=== PATIENT | female | born 1965 | race Caucasian/White ===

== ENCOUNTER 2017-07-29 14:22 | Emergency (ER) | payer MEDICAID ==
[~2017-07-29] VITALS: Ht 160 cm; Wt 54.5 kg
[~2017-07-29 14:22] MED LIST: BACTRIM DS1 TAB PO; COL100 PO; GLU5 PO; GLUCOTROL10 MG PO; LAC PO; MECLIZINE HCL12.5 MG PO; METFORMIN HCL850 MG PO; THERA TABS1 TAB PO; TRAMADOL HCL50 MG PO; ZOVIRAX400 MG PO
[2017-07-29 17:19] LABS: BASOPHIL % 0.7 % (0-2); PLATELET COUNT 186 x10^3mcL (130-400); RED CELL DISTRIBUTION WIDTH 13.2 % (11.5-14.5)
[2017-07-29 17:29] LABS: CARBON DIOXIDE 29.7 mmol/L (21-32); CHLORIDE SERUM 99 mmol/L (98-107); CREATININE SERUM 0.6 mg/dL (0.6-1.0); GFR1 > 60 mL/min; GLUCOSE SERUM 195 mg/dL (74-106); POTASSIUM SERUM 4.4 mmol/L (3.5-5.1); SODIUM SERUM 136 mmol/L (136-145)
[2017-07-29 17:35] LABS: ALBUMIN 3.6 g/dL (3.4-5.0); ALKALINE PHOSPHATASE 98 U/L (46-116); ALT/SGPT 22 U/L (14-59); AST/SGOT 26 U/L (15-37); BILIRUBIN TOTAL 0.8 mg/dL (0.20-1.00)
[2017-07-29 17:36] LABS: TOTAL PROTEIN, SERUM 8.4 g/dL (6.4-8.2)
[2017-07-29 17:39] LABS: UA SPECIFIC GRAVITY >=1.030 (1.005-1.035); microscopic required? YES; urine erythrocyte TRACE (NEGATIVE)
[2017-07-29 19:51] VITALS: BP 121/78
== END 2017-07-29 19:45 | disposition home or self-care (01) ==
LOC: ED 14:22
PROVIDERS: Emergency Medicine
DX: G89.29 Other chronic pain (principal); M54.9 Dorsalgia, unspecified; E11.9 Type 2 diabetes mellitus without complications; E78.00 Pure hypercholesterolemia, unspecified; Z79.84 Long term (current) use of oral hypoglycemic drugs
CPT/HCPCS: J3010; J7030

== ENCOUNTER 2020-01-26 12:09 | Observation (INO) | payer OTHER ==
[~2020-01-26] VITALS: Ht 160 cm; Wt 54.6 kg
[2020-01-26 12:48] LABS: PLATELET COUNT 233 x10^3mcL (130-400); RED CELL DISTRIBUTION WIDTH 13.4 % (11.5-14.5)
[2020-01-26 13:17] LABS: CALCIUM 9.5 mg/dL (8.5-10.1); CHLORIDE SERUM 101 mmol/L (98-107); CREATININE SERUM 0.7 mg/dL (0.6-1.0); GFR1 > 60 mL/min; GLUCOSE SERUM 356 mg/dL (74-106); POTASSIUM SERUM 4.6 mmol/L (3.5-5.1); SODIUM SERUM 136 mmol/L (136-145)
[2020-01-26 13:19] LABS: ALKALINE PHOSPHATASE 101 U/L (46-116); ALT/SGPT 25 U/L (14-59); AST/SGOT 10 U/L (15-37); BILIRUBIN TOTAL 0.7 mg/dL (0.20-1.00); TOTAL PROTEIN, SERUM 7.4 g/dL (6.4-8.2)
[2020-01-26] MEDS ORDERED: GLIPIZIDE XL10 M1 PO (13:50)
[2020-01-26 16:16] VITALS: BP 115/61
[2020-01-26 20:16] VITALS: BP 109/56
[2020-01-27 04:50] VITALS: BP 103/55
[2020-01-27 06:58] LABS: BASOPHIL % 0.9 % (0-2); PLATELET COUNT 223 x10^3mcL (130-400); RED CELL DISTRIBUTION WIDTH 13.6 % (11.5-14.5)
[2020-01-27 08:30] LABS: CALCIUM 9.7 mg/dL (8.5-10.1); CARBON DIOXIDE 25.5 mmol/L (21-32); CHLORIDE SERUM 105 mmol/L (98-107); CREATININE SERUM 0.6 mg/dL (0.6-1.0); GFR1 > 60 mL/min; GLUCOSE SERUM 173 mg/dL (74-106); SODIUM SERUM 137 mmol/L (136-145)
[2020-01-27 08:32] VITALS: BP 104/54
[2020-01-27 09:23] VITALS: Ht 160 cm; Wt 54.6 kg
[2020-01-27] MEDS ORDERED: BACDS PO (12:43)
[2020-01-27 13:32] VITALS: BP 104/54
[2020-01-27 14:00] VITALS: BP 108/61
== END 2020-01-27 15:10 | disposition home or self-care (01) ==
LOC: ED 12:09 → DU 14:56
PROVIDERS: Emergency Medicine; ADMIT Hospitalist
DX: R07.2 Precordial pain (principal); I10 Essential (primary) hypertension; E11.9 Type 2 diabetes mellitus without complications; R55 Syncope and collapse; M54.5 Low back pain; G89.29 Other chronic pain; E78.5 Hyperlipidemia, unspecified
CPT/HCPCS: 82962; G0378; G0480; J1644; J2060; Q0092

== ENCOUNTER 2020-02-19 12:11 | Emergency (ER) | payer OTHER ==
[~2020-02-19] VITALS: Ht 160 cm; Wt 49.9 kg
[~2020-02-19 12:11] MED LIST changes: +BACDS PO; +GLIPIZIDE XL10 M1 PO
[2020-02-19 12:16] VITALS: Ht 160 cm; Wt 49.9 kg
[2020-02-19 13:23] LABS: BASOPHIL % 0.8 % (0-2); PLATELET COUNT 238 x10^3mcL (130-400); RED CELL DISTRIBUTION WIDTH 13.5 % (11.5-14.5)
[2020-02-19 13:30] LABS: ALBUMIN 4.1 g/dL (3.4-5.0); ALKALINE PHOSPHATASE 104 U/L (46-116); ALT/SGPT 17 U/L (14-59); AST/SGOT 9 U/L (15-37); BILIRUBIN TOTAL 0.7 mg/dL (0.20-1.00); CALCIUM 9.4 mg/dL (8.5-10.1); CARBON DIOXIDE 24.9 mmol/L (21-32); CHLORIDE SERUM 101 mmol/L (98-107); CREATININE SERUM 0.7 mg/dL (0.6-1.0); GFR1 > 60 mL/min; GLUCOSE SERUM 237 mg/dL (74-106); POTASSIUM SERUM 4.2 mmol/L (3.5-5.1); SODIUM SERUM 135 mmol/L (136-145); TOTAL PROTEIN, SERUM 7.4 g/dL (6.4-8.2)
[2020-02-19 16:13] LABS: AMPHETAMINE QUAL UR NONE DETECTED (See below)
[2020-02-19 17:41] VITALS: BP 140/71
== END 2020-02-19 17:41 | disposition home or self-care (01) ==
LOC: ED 12:11
PROVIDERS: Emergency Medicine
DX: T71.9XXA Asphyxiation due to unspecified cause, initial encounter (principal); R07.89 Other chest pain; R53.1 Weakness; R55 Syncope and collapse
CPT/HCPCS: 83880; J7030; Q0092